=== PATIENT | male | born 1960 | race Hispanic/Latino ===

== ENCOUNTER 2022-08-06 02:07 | Emergency (ER) | payer SELFPAY ==
[2022-08-06] MEDS ORDERED: FAMOTIDINE 20 MG/2 ML VIAL IV ONE (02:29)
[2022-08-06] MEDS ORDERED: NA CHLORIDE 0.9% 1,000 ML ONE (02:29)
[2022-08-06] MEDS ORDERED: ONDANSETRON 4 MG/2 ML VIAL ONE (02:29)
[2022-08-06] MEDS ORDERED: MORPHINE 4 MG/ML SYR ONE (02:29)
[2022-08-06 02:52] LABS: Absolute Lymphocytes (CBC) 0.4 K/uL (0.7-4.9); Hematocrit 49.2 % (39.6-49.0); Lymphocytes % 2.1 % (15.3-44.8); RBC Red Blood Cell Count 5.18 M/uL (4.33-5.43)
[2022-08-06 03:04] LABS: Albumin 4.1 g/dL (3.4-5.0); Bilirubin Total 0.7 mg/dL (0.2-1.0); Potassium 4.2 mmol/L (3.5-5.1); Protein, Total 7.7 g/dL (6.4-8.2)
[2022-08-06 03:25] LABS: SARS-COV-2 RT PCR NEGATIVE (NEGATIVE)
--- NOTE | 2022-08-06 04:22 | ER ---
Nurse's Notes [facility] Name: Roberto Segura Age: 62 yrs Sex: Male : 1960 Arrival Date: 08/06/2022 Time: 02:08 Bed 19 Private MD: Diagnosis: Epigastric pain;Elevated troponin Presentation: 08/06 02:17 Chief complaint: Patient states: I am having abdominal pain and vomiting since 8 am aa9 yesterday. I started vomiting yellow fluids and I started having loose stools at the end of the day. Coronavirus screen: Vaccine status: Patient reports receiving the 2nd dose of the covid vaccine. Ebola Screen: No symptoms or risks identified at this time. Initial Sepsis Screen: Does the patient meet any 2 criteria? No. Patient's initial sepsis screen is negative. Does the patient have a suspected source of infection? No. Patient's initial sepsis screen is negative. Risk Assessment: Do you want to hurt yourself or someone else? Patient reports no desire to harm self or others. Onset of symptoms was August 06, 2022. 02:17 Method Of Arrival: Wheelchair aa9 02:17 Acuity: DANIEL 3 aa9 Triage Assessment: 02:20 General: Appears uncomfortable, Behavior is cooperative, anxious. Pain: Complains of aa9 pain in epigastric area Pain currently is 10 out of 10 on a pain scale. Noted to be grimacing, resistant to movement. Neuro: Level of Consciousness is awake, alert, obeys commands, Oriented to person, place, time, situation. Cardiovascular: Patient's skin is warm and dry. Cardiovascular: Denies chest pain, shortness of breath. Respiratory: Airway is patent Respiratory effort is even, unlabored. GI: Reports upper abdominal pain, nausea, vomiting. : No signs and/or symptoms were reported regarding the genitourinary system. Derm: Skin is intact, is healthy with good turgor. Musculoskeletal: No deficits noted. Historical: - Allergies: 02:22 No Known Allergies; aa9 - PMHx: 02:19 Diabetes mellitus; Hypertensive disorder; Hypercholesterolemia; aa9 - PSHx: 02:19 Appendectomy; eye sx; aa9 - Immunization history:: Client reports receiving the 2nd dose of the Covid vaccine. - Social history:: Smoking status: Patient denies any tobacco usage or history of. - Family history:: not pertinent. - Hospitalizations: : No recent hospitalization is reported. Screenin:21 [facility] ED Fall Risk Assessment (Adult) History of falling in the last 3 months, aa9 including since admission No falls in past 3 months (0 pts) Confusion or Disorientation No (0 pts) Intoxicated or Sedated No (0 pts) Impaired Gait No (0 pts) Mobility Assist Device Used No (0 pt) Altered Elimination No (0 pt) Score/Fall Risk Level 0 - 2 = Low Risk Oriented to surroundings, Maintained a safe environment. Abuse screen: Denies threats or abuse. Denies injuries from another. Nutritional screening: Has had N/V for 3 or more days. Tuberculosis screening: No symptoms or risk factors identified. Assessment: 03:12 General: troponin of 77.6. notified [place]. . kd3 04:09 Reassessment: Patient appears in no apparent distress at this time. Patient is alert, aa9 oriented x 3, equal unlabored respirations, skin warm/dry/pink. Patient states symptoms have improved. 05:08 Reassessment: Patient appears in no apparent distress at this time. Patient is alert, aa9 oriented x 3, equal unlabored respirations, skin warm/dry/pink. Patient states feeling better. Patient states symptoms have improved. Vital Signs: 02:15 BP 163 / 78; Pulse 83; Resp 20 S; Pulse Ox 95% on R/A; aa9 02:17 BP 158 / 72; Pulse 89; Resp 20 S; Pulse Ox 95% on R/A; Weight 90 kg; Height 5 ft. 6 in. aa9 (167.64 cm) (R); Pain 10/10; 02:38 Temp 98.1(O); aa9 03:30 BP 138 / 60; Pulse 86; Resp 17 S; Pulse Ox 97% on R/A; aa9 04:00 BP 127 / 67; Pulse 88; Resp 18; Pulse Ox 94% on R/A; aa9 05:01 BP 135 / 74; Pulse 90; Resp 17 S; Pulse Ox 94% on R/A; aa9 02:17 Body Mass Index 32.02 (90.00 kg, 167.64 cm) aa9 ED Course: 02:08 Patient arrived in ED. jj6 02:09 Lamin Shultz MD is Attending Physician. rn 02:09 Kim Chegn, RN is Primary Nurse. aa9 02:17 Inserted saline lock: 20 gauge in left wrist, using aseptic technique. Blood collected. tw5 02:19 Triage completed. aa9 02:21 Arm band placed on right wrist. aa9 02:21 Patient has correct armband on for positive identification. Placed in gown. Bed in low aa9 position. Call light in reach. Adult w/ patient. Client placed on continuous cardiac and pulse oximetry monitoring. NIBP monitoring applied. 02:37 COVID-19/FLU A+B Sent. aa9 02:37 CBC with Diff Sent. aa9 02:37 Lipase Sent. aa9 02:37 CMP Sent. aa9 02:37 Troponin High Sensitivity Sent. aa9 04:21 Randall Bucio is Hospitalizing Provider. rn 04:46 Urine Culture Sent. aa9 04:46 Urine Microscopic Only Sent. aa9 05:07 No provider procedures requiring assistance completed. IV discontinued, intact, aa9 bleeding controlled, No redness/swelling at site. Pressure dressing applied. Administered Medications: 02:24 Drug: Zofran (Ondansetron) 4 mg Route: IVP; Site: right wrist; aa9 05:08 Follow up: Response: No adverse reaction aa9 02:26 Drug: Pepcid (famotidine) 20 mg Route: IVP; Site: right wrist; aa9 05:08 Follow up: Response: No adverse reaction aa9 02:28 Drug: morphine 4 mg Route: IVP; Infused Over: 4 mins; Site: right wrist; aa9 05:08 Follow up: Response: No adverse reaction aa9 02:36 Drug: NS 0.9% 1000 ml Route: IV; Rate: 1 bolus; Site: right wrist; aa9 05:08 Follow up: Response: No adverse reaction; IV Status: Completed infusion; IV Intake: aa9 1000ml 04:22 Drug: Aspirin Chewable Tablet 324 mg Route: PO; aa9 04:34 Follow up: Response: No adverse reaction aa9 Medication: 05:08 VIS not applicable for this client. aa9 Intake: 05:08 IV: 1000ml; Total: 1000ml. aa9 Outcome: 04:21 Decision to Hospitalize by Provider. rn 04:58 Discharge ordered by . rn 05:07 Discharged to home ambulatory, with family. aa9 05:07 Condition: stable 05:07 Discharge instructions given to patient, family, Instructed on discharge instructions, follow up and referral plans. medication usage, Demonstrated understanding of instructions, follow-up care, medications, Prescriptions given X 2. 05:09 Patient left the ED. aa9 Signatures: Lamin Shultz MD MD rn Wood, Tiffany tw5 Roseann Mcgrathj6 Elizabeth Hicks RN RN kd3 Kim Cheng RN RN aa9 Corrections: (The following items were deleted from the chart) 04:09 03:58 BP 138 / 60; Pulse 86bpm; Resp 17bpm; Spontaneous; Pulse Ox 97% RA; aa9 aa9
--- NOTE | 2022-08-06 04:22 | EDPHYS ---
Physician Documentation [facility] Name: Roberto Segura Age: 62 yrs Sex: Male : 1960 Arrival Date: 08/06/2022 Time: 02:08 Bed 19 Private MD: ED Physician Lamin Shultz HPI: 08/06 02:23 This 62 yrs old Male presents to ER via Wheelchair with complaints of rn Nausea/Vomiting/diarrhea. 02:23 The patient presents to the emergency department with nausea, vomiting, diarrhea, rn abdominal pain. Onset: The symptoms/episode began/occurred last night. Possible causes: unknown. The symptoms are aggravated by nothing. The symptoms are alleviated by nothing. Associated signs and symptoms: Pertinent positives: abdominal pain, nausea, vomiting, Pertinent negatives: fever, GI bleeding. Severity of symptoms: At their worst the symptoms were moderate in the emergency department the symptoms are unchanged. The patient has not experienced similar symptoms in the past. The patient has not recently seen a physician. Historical: - Allergies: 02:22 No Known Allergies; aa9 - PMHx: 02:19 Diabetes mellitus; Hypertensive disorder; Hypercholesterolemia; aa9 - PSHx: 02:19 Appendectomy; eye sx; aa9 - Immunization history:: Client reports receiving the 2nd dose of the Covid vaccine. - Social history:: Smoking status: Patient denies any tobacco usage or history of. - Family history:: not pertinent. - Hospitalizations: : No recent hospitalization is reported. ROS: 02:23 Constitutional: Negative for fever, chills, and weight loss, Eyes: Negative for injury, rn pain, redness, and discharge, Neck: Negative for injury, pain, and swelling, Cardiovascular: Negative for chest pain, palpitations, and edema, Respiratory: Negative for shortness of breath, cough, wheezing, and pleuritic chest pain, Abdomen/GI: + abd pain/nausea/vomiting/diarrhea Back: Negative for injury and pain, MS/Extremity: Negative for injury and deformity, Skin: Negative for injury, rash, and discoloration, Neuro: Negative for headache, weakness, numbness, tingling, and seizure. Exam: 02:23 Constitutional: This is a well developed, well nourished patient who is awake, alert, rn and in no acute distress. Head/Face: Normocephalic, atraumatic. ENT: dry MM Cardiovascular: Regular rate and rhythm. No pulse deficits. Respiratory: Mild tachypnea, no retractions Abdomen/GI: soft, + epigastric tenderness, no rebound Skin: Warm, dry MS/ Extremity: Pulses equal, no cyanosis. Neuro: Awake and alert, GCS 15 02:46 ECG was reviewed by the Attending Physician. rn Vital Signs: 02:15 BP 163 / 78; Pulse 83; Resp 20 S; Pulse Ox 95% on R/A; aa9 02:17 BP 158 / 72; Pulse 89; Resp 20 S; Pulse Ox 95% on R/A; Weight 90 kg; Height 5 ft. 6 in. aa9 (167.64 cm) (R); Pain 10/10; 02:38 Temp 98.1(O); aa9 03:30 BP 138 / 60; Pulse 86; Resp 17 S; Pulse Ox 97% on R/A; aa9 04:00 BP 127 / 67; Pulse 88; Resp 18; Pulse Ox 94% on R/A; aa9 05:01 BP 135 / 74; Pulse 90; Resp 17 S; Pulse Ox 94% on R/A; aa9 02:17 Body Mass Index 32.02 (90.00 kg, 167.64 cm) aa9 MDM: 02:09 Patient medically screened. rn 02:47 Independent interpretation of the following test(s) in the Emergency Department EKG: rn See my EKG interpretation above. 02:47 Differential diagnosis: Nonspecific abd pain, gastritis, cholecystitis, pancreatitis, rn viral gastroenteritis, gastroenteritis, cardiac etiology, enteritis, viral syndrome, COVID, FLu. 04:17 Data reviewed: vital signs, nurses notes, lab test result(s), EKG, radiologic studies, rn CT scan. Consideration of Admission/Observation Patient was admitted/placed on observation. Escalation of care including admission/observation considered. Management of patient was discussed with the following: Hospitalist: Management of case discussed with hospitalist. I considered the following discharge prescriptions or medication management in the emergency department Medications were administered in the Emergency Department. See MAR. Counseling: I had a detailed discussion with the patient and/or guardian regarding: the historical points, exam findings, and any diagnostic results supporting the discharge/admit diagnosis, lab results, radiology results, the need for further work-up and treatment in the hospital. Response to treatment: the patient's symptoms have mildly improved after treatment, and as a result, I will admit patient. ED course: Pt with neg CT abdomen/pelvis, no ischemia on ECG, + elevated troponin, has risk factors, will admit for further evaluation and cardiology eval. . 04:42 ED course: Family and patient now state that they might not want to be admitted. They rn are only visiting here and were planning on traveling back to [place] today. They understand that his troponin is elevated and unclear meaning/etiology, and I expressed my concern if he does not stay as well as explained possible risks, including if this is cardiac etiology. . 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 He and family understand that my recommendation is to admit for further w/u and they want to leave. He states that I will not convince him to stay. . 08/06 02:23 Order name: CBC with Diff rn 08/06 02:23 Order name: CMP rn 08/06 02:23 Order name: Lipase rn 08/06 02:23 Order name: COVID-19/FLU A+B rn 08/06 02:30 Order name: Troponin High Sensitivity rn 08/06 02:56 Order name: CBC with Automated Diff; Complete Time: 04:49 EDMS 08/06 03:04 Order name: Comprehensive Metabolic Panel; Complete Time: 03:12 EDMS 08/06 03:04 Order name: Lipase; Complete Time: 03:12 EDMS 08/06 03:12 Order name: Troponin High Sensitivity; Complete Time: 03:13 EDMS 08/06 03:25 Order name: COVID-19/FLU A+B; Complete Time: 04:16 EDMS 08/06 04:23 Order name: Urine Culture rn 08/06 04:23 Order name: Urine Microscopic Only rn 08/06 04:41 Order name: Manual Differential; Complete Time: 04:49 EDMS 08/06 04:44 Order name: Urine Dipstick-Ancillary; Complete Time: 04:49 EDMS 08/06 02:23 Order name: CT Abd/Pelvis - IV Contrast Only rn 08/06 02:23 Order name: IV Saline Lock; Complete Time: 02:37 rn 08/06 02:23 Order name: Labs collected and sent; Complete Time: 02:37 rn 08/06 02:26 Order name: XRAY Chest (1 view) rn 08/06 02:30 Order name: EKG; Complete Time: 02:31 rn 08/06 02:30 Order name: EKG - Nurse/Tech; Complete Time: 02:45 rn 08/06 03:13 Order name: CT Chest For PE Angio rn 08/06 04:23 Order name: Urine Dipstick-Ancillary (obtain specimen); Complete Time: 04:46 rn 08/06 05:00 Order name: Urine Microscopic Only EDMS EC:46 Rate is 88 beats/min. Rhythm is regular. QRS [place] is Normal. [place] interval is normal. QRS rn interval is normal. QT interval is normal. No Q waves. T waves are Normal. No ST changes noted. Clinical impression: Normal ECG. Interpreted by me. Reviewed by me. Administered Medications: 02:24 Drug: Zofran (Ondansetron) 4 mg Route: IVP; Site: right wrist; aa9 05:08 Follow up: Response: No adverse reaction aa9 02:26 Drug: Pepcid (famotidine) 20 mg Route: IVP; Site: right wrist; aa9 05:08 Follow up: Response: No adverse reaction aa9 02:28 Drug: morphine 4 mg Route: IVP; Infused Over: 4 mins; Site: right wrist; aa9 05:08 Follow up: Response: No adverse reaction aa9 02:36 Drug: NS 0.9% 1000 ml Route: IV; Rate: 1 bolus; Site: right wrist; aa9 05:08 Follow up: Response: No adverse reaction; IV Status: Completed infusion; IV Intake: aa9 1000ml 04:22 Drug: Aspirin Chewable Tablet 324 mg Route: PO; aa9 04:34 Follow up: Response: No adverse reaction aa9 Disposition Summary: 08/06/22 04:58 Discharge Ordered Location: Home(08/06/22 04:58) rn Problem: new(08/06/22 04:58) rn Symptoms: have improved(08/06/22 04:58) rn Condition: Stable(08/06/22 04:58) rn Diagnosis - Epigastric pain(08/06/22 04:58) rn - Elevated troponin rn Followup: rn - With: Private Physician - When: Upon discharge from the Emergency Department - Reason: Recheck today's complaints, Re-evaluation by your physician Discharge Instructions: - Discharge Summary Sheet rn - Abdominal Pain, Adult rn - Troponin Test rn Forms: - Medication Reconciliation Form rn - Thank You Letter rn - Antibiotic rn delivery - Prescription Opioid Use rn Prescriptions: - Tramadol 50 mg Oral Tablet - take 1 tablet by ORAL route every 8 hours as needed; 12 tablet; Refills: 0, rn Product Selection Permitted - levofloxacin 500 mg Oral Tablet - take 1 tablet by ORAL route once daily for 7 days; 7 tablet; Refills: 0, rn Product Selection Permitted Signatures: Dispatcher [employer] EDLamin Garcia MD MD rn Garcia, Cindy RN RN Kim Chaudhary RN RN aa9 Corrections: (The following items were deleted from the chart) 04:39 04:21 Telemetry/MedSurg (observation) rn cg 04:39 04:21 rn cg 04:58 04:21 Observation rn rn 04:58 04:21 Randall Bucio rn rn 04:58 04:21 Stable rn rn 04:58 04:21 new rn rn 04:58 04:21 have improved rn rn 04:58 04:21 Standard rn rn 04:58 04:21 Epigastric pain rn rn 04:58 04:21 Elevated troponin rn rn 04:58 04:39 [facility] ER HOLD cg rn 04:58 04:39 ERHOLD- cg rn
[2022-08-06] MEDS ORDERED: ASPIRIN 81 MG CHEWABLE TABLET ONE (04:23)
[2022-08-06 04:40] LABS: Blood Morphology Comment NOT SEEN (NOT SEEN); Platelet Estimate ADEQ
--- NOTE | 2022-08-06 04:42 | P.HP ---
Certification for Inpatient Patient admitted to: Observation With expected LOS: <2 Midnights Patient will require the following post-hospital care: None Practitioner: I am a practitioner with admitting privileges, knowledge of patient current condition, hospital course, and medical plan of care. Services: Services provided to patient in accordance with Admission requirements found in Title 42 Section 412.3 of the Code of Federal Regulations Patient History Date of Service: 08/06/22 Reason for admission: Elevated Troponin, Gastroenteritis Home medications list reviewed: Yes - Past Medical/Surgical History Diabetic: Yes -: Type 2 Diabetes -: Hypertension -: Hyperlipidemia -: Appendectomy Psychosocial/ Personal History: Patient is . - Family History Family History: Reviewed- Non-Contributory - Social History Place of Residence: Home Review of Systems Gastrointestinal: Nausea, Vomiting, Abdominal Pain, Diarrhea Physical Examination - Vital Signs Temperature: 98.1 F Blood Pressure: 127/67 Pulse: 88 Respirations: 18 Pulse Ox (%): 94 - Physical Exam General: Alert, In no apparent distress HEENT: Atraumatic, EOMI, Sclerae nonicteric Neck: Supple, 2+ carotid pulse no bruit Respiratory: Clear to auscultation bilaterally, Normal air movement Cardiovascular: Regular rate/rhythm, Normal S1 S2 Gastrointestinal: Normal bowel sounds, No tenderness Musculoskeletal: No tenderness Integumentary: No rashes Neurological: Normal speech, Normal affect - Studies Laboratory Data (last 24 hrs) 08/06/22 02:26: Sodium 140, Potassium 4.2, BUN 24 H, Creatinine 0.97, Glucose 183 H, Total Bilirubin 0.7, AST 23, ALT 32, Alkaline Phosphatase 72, Lipase 178 08/06/22 02:26: WBC 18.40 H, Hgb 16.7, Hct 49.2 H, Plt Count 235 Assessment and Plan - Problems (Diagnosis) (1) Gastroenteritis Current Visit: Yes Status: Acute (2) Elevated troponin Current Visit: Yes Status: Acute (3) Hypertension Current Visit: Yes Status: Chronic Qualifiers: Hypertension type: primary hypertension Qualified Code(s): I10 - Essential (primary) hypertension (4) Hyperlipidemia Current Visit: Yes Status: Chronic Qualifiers: Hyperlipidemia type: unspecified Qualified Code(s): E78.5 - Hyperlipidemia, unspecified (5) Type 2 diabetes mellitus Current Visit: Yes Status: Chronic Qualifiers: Diabetes mellitus chcf insulin use: without intermodal owner operator truck driver use Diabetes mellitus complication status: with hyperglycemia Qualified Code(s): E11.65 - Type 2 diabetes mellitus with hyperglycemia Discharge Plan: Home Plan to discharge in: 24 Hours - Advance Directives Does patient have a Living Will: No Does patient have a Durable POA for Healthcare: No - Code Status/Comfort Care Code Status Assessed: Yes Code Status: Full Code Physician Review: Patient Assessed, Agree with Above Assessment and Plan Critical Care: No Time Spent Managing Pts Care (In Minutes): 50
[2022-08-06 04:44] LABS: Urine Blood Trace-lysed (Negative); Urine Glucose 2+ (Negative); Urine Protein Negative (Negative)
[2022-08-06 04:59] LABS: Urine Bacteria None Seen /HPF (<20); Urine Mucus Slight /HPF (None Seen); Urine RBC None Seen /HPF (None Seen)
[2022-08-06 05:28] VITALS: TEMP 98.1
[2022-08-06 05:48] VITALS: O2SAT 94
[2022-08-06 06:29] VITALS: BP 135/74
--- NOTE | 2022-08-06 14:50 | RAD REPORT ---
EXAM DESCRIPTION: CT - Abdomen Pelvis W Contrast - 08/06/2022 5:28 am CLINICAL HISTORY: The patient is 62 years old and is Male; upper abdominal pain, vomiting, diarrhea TECHNIQUE: Axial computed tomography images of the abdomen and pelvis with intravenous contrast. S agittal and coronal reformatted images were created and reviewed. This CT exam was performed using one or more of the following dose reduction techniques: automated exposure control, adjustment of t he mA and/or kV according to patient size, and/or use of iterative reconstruction technique. COMPARISON: No relevant prior studies available. FINDINGS: LUNG BASES: See dedicated CTA of the chest performed the same day. ABDOMEN: LIVER: The liver is enlarged and mildly fatty. The liver is homogeneous. GALLBLADDER AND BILE DUCTS: No calcified stones. No ductal dilation. PANCREAS: No ductal dilation. No mass. SPLEEN: Unremarkable. ADRENALS: Unremarkable. No mass. KIDNEYS AND URETERS: Bilateral nonspecific perinephric stranding is present. The kidneys enhance symmetrically. There is no hydronephrosis or hydroureter of either kidney. No obstructing renal or u reteral calculus is seen. STOMACH AND BOWEL: The stomach is minimally fluid filled. The small bowel is relatively normal i n caliber. Stool is present throughout colon. There is no mucosal thickening or evidence of obstructi on. Scattered colonic diverticula are noted without surrounding inflammation. PELVIS: APPENDIX: No findings to suggest acute appendicitis. BLADDER: Unremarkable. No mass. REPRODUCTIVE: Unremarkable as visualized. ABDOMEN and PELVIS: INTRAPERITONEAL SPACE: Unremarkable. No free air. No significant fluid collection. BONES/JOINTS: Multilevel degenerative change of the spine is present. There is no acute fractu re. SOFT TISSUES: The soft tissues are normal. VASCULATURE: Unremarkable. No abdominal aortic aneurysm. LYMPH NODES: Unremarkable. No enlarged lymph nodes. IMPRESSION: No acute findings on this contrasted CT of the abdomen and pelvis to explain the patient 's symptoms. Electronically signed by: Rashmi Car MD 08/06/2022 4:05 AM MANAGER LAW Due to temporary technical issues with the PACS/Fluency reporting system, reports are being signed by the in house radiologists without review as a courtesy to insure prompt reporting. The interpreting radiologist is fully responsible for the content of the report.
--- NOTE | 2022-08-06 14:52 | RAD REPORT ---
EXAM DESCRIPTION: RAD - Chest Single View - 08/06/2022 2:51 am CLINICAL HISTORY: The patient is 62 years old and is Male; tachypnea TECHNIQUE: Frontal view of the chest. COMPARISON: No relevant prior studies available. FINDINGS: Lungs: Prominent interstitial markings which may indicate mild interstitial edema. No co nsolidation. Pleural space: Unremarkable. No pneumothorax. Heart: Unremarkable. Mediastinum: Unremarkable. Bones/joints: Unremarkable. IMPRESSION: Prominent interstitial markings which may indicate mild interstitial edema. No consolida tion. Electronically signed by: Jaskaran Wilson MD 08/06/2022 3:06 AM C SOFTWARE ENGINEER Due to temporary technical issues with the PACS/Fluency reporting system, reports are being signed by the in house radiologists without review as a courtesy to insure prompt reporting. The interpreting radiologist is fully responsible for the content of the report.
--- NOTE | 2022-08-06 14:53 | RAD REPORT ---
EXAM DESCRIPTION: CT - Chest For Pe Angio - 08/06/2022 5:28 am CLINICAL HISTORY: The patient is 62 years old and is Male; tachypnea, elevated troponin TECHNIQUE: Axial computed tomographic angiography images of the chest with intravenous contrast. S agittal and coronal reformatted images were created and reviewed. This CT exam was performed using one or more of the following dose reduction techniques: automated exposure control, adjustment of t he mA and/or kV according to patient size, and/or use of iterative reconstruction technique. MIP reconstructed images were created and reviewed. COMPARISON: No relevant prior studies available. FINDINGS: TRACHEA: The tracheobronchial tree is widely patent. PULMONARY ARTERIES: The timing of contrast is suboptimal to evaluate for pulmonary thromboemboli sm. AORTA: No acute findings. No thoracic aortic aneurysm. LUNGS: An 8 mm right middle lobe pulmonary nodule is present. The lungs are otherwise well-infla judah and clear. PLEURAL SPACE: Unremarkable. No significant effusion. No pneumothorax. HEART: Unremarkable. No cardiomegaly. No significant pericardial effusion. No evidence of RV dysfunction. BONES/JOINTS: No acute fracture. No dislocation. SOFT TISSUES: Unremarkable. LYMPH NODES: Unremarkable. No enlarged lymph nodes. IMPRESSION: 1. The timing of contrast is suboptimal to evaluate for pulmonary thromboembolism. 2. Right middle lobe pulmonary nodule. Fleischner Society Guidelines (MacMahon, et al. Radiology 2017; 284(1):228-43) suggest the following. For low-risk patients recommend follow-up chest CT at 6 -12 months. If unchanged consider an additional follow-up CT at 18-24 months. For high-risk patie nts initial follow-up chest CT at 6-12 months and if unchanged, 18-24 months. Electronically signed by: Rashmi Car MD 08/06/2022 4:08 AM FRYER LINE HELPER Due to temporary technical issues with the PACS/Fluency reporting system, reports are being signed by the in house radiologists without review as a courtesy to insure prompt reporting. The interpreting radiologist is fully responsible for the content of the report.
--- NOTE | 2022-08-06 16:30 | EKG ---
Test Date: 2022-08-06 Test Time: 02:44:43 Hall Manager: RACHAEL MEASUREMENT RESULTS: Intervals: Rate: 88 MT: 158 QRSD: 92 QT: 394 QTc: 476 [place]: P: 61 MT: 158 QRS: -1 T: 36 INTERPRETIVE STATEMENTS: Normal sinus rhythm Normal ECG No previous ECG available for comparison Electronically Signed On 08-06-22 16:29:01 [employer] by Noel Huffman
== END 2022-08-06 05:09 | disposition home or self-care (01) ==
LOC: ER 02:07
DX: R10.13 Epigastric pain (principal); R77.8 Other specified abnormalities of plasma proteins; I10 Essential (primary) hypertension; E11.9 Type 2 diabetes mellitus without complications
CPT/HCPCS: 0240U; 36415; 71045; 71275; 74177; 80053; 81003; 81015; 83690; 84484; 85025; 87086; 87088; 93005; 96361; 96374; 96375; 99284; J2405; J7030; Q9967